=== PATIENT | female | born 1970 | race Caucasian/White ===

== ENCOUNTER 2023-05-21 10:29 | Outpatient (REF) | payer OTHER, SELFPAY ==
[2023-05-21 11:46] LABS: MANUAL DIFF FLAG NO
[2023-05-21 12:26] LABS: Basophils Absolute Auto 0.1 X10*3/uL (0.0-0.2); Basophils Percent Auto 0.6 % (0-2); Eosinophils Absolute Auto 0.2 X10*3/uL (0.0-0.4); Eosinophils Percent Auto 1.7 % (0-4); Hematocrit 47.7 % (37.0-47.0); Hemoglobin 15.4 g/dl (12.0-16.0); Lymphocytes Absolute Auto 1.8 X10*3/uL (1.2-4.9); Lymphocytes Percent Auto 18.2 % (20-40); Mean Corpuscular HGB Conc 32.3 g/dl (31.0-35.0); Mean Corpuscular Volume 80.6 fL (80.0-98.0); Mean Platelet Volume 9.7 fL (9.4-12.3); Monocytes Absolute Auto 0.3 X10*3/uL (0.1-1.2); Monocytes Percent Auto 2.8 % (2-11); Neutrophils Absolute Auto 7.5 x10*3/uL (2.0-8.3); Neutrophils Percent Auto 75.7 % (45-73); Platelet Count 233 X10*3/uL (160-400); Red Blood Count 5.92 X10*6/uL (4.20-5.50); White Blood Count 9.9 X10*3/uL (4.8-10.8)
[2023-05-21 12:42] LABS: Alanine Aminotransferase 19 U/L (0-31); Albumin Level 4.2 g/dL (3.5-5.0); Alkaline Phosphatase 82 U/L (39-117); Anion Gap 13 (12-20); Aspartate Amino Transferase 15 U/L (5-31); Bilirubin Total 0.4 mg/dL (0.0-1.0); Blood Urea Nitrogen 11 mg/dL (9-16); Calcium 9.4 mg/dL (8.4-10.2); Carbon Dioxide 30 mmol/L (22-29); Chloride 105 mmol/L (96-108); Estimated Glomerular Filt Rate > 60; Glucose Random 112 mg/dL (60-115); Potassium 4.8 mmol/L (3.3-5.1); Sodium 143 mmol/L (135-145); Total Protein 7.4 g/dL (6.5-8.0)
== END 2023-05-21 10:30 | disposition home or self-care (01) ==
LOC: HO.LAB 10:29
PROVIDERS: Nurse Practitioner; PCP Internal Medicine; Visit Provider Physician Assistant
DX: Z01.818 Encounter for other preprocedural examination (principal); D12.6 Benign neoplasm of colon, unspecified
CPT/HCPCS: 36415; 80053; 85025

== ENCOUNTER 2023-08-26 11:17 | Day surgery (SDC) | payer OTHER, SELFPAY ==
[2023-08-26 11:56] VITALS: BMI 36.7
--- NOTE | 2023-08-26 12:02 | P.CONAN_ITS ---
[facility] Active Problems Active Problems: All Active Problems Pre-op examination (Acute) Tubular adenoma of colon (Acute) Insomnia (Acute) Depression with anxiety (Acute) Migraines (Acute) Cervical spondylosis (Acute) Lumbar spondylosis (Acute) Sacroiliac dysfunction (Acute) Allergic rhinitis (Acute) Nonalcoholic fatty liver (Acute) Primary fibromyalgia syndrome (Acute) Fibromyositis (Acute) Chronic pain syndrome (Acute) Chronic kidney disease, stage 1 (Acute) High cholesterol (Acute) Diabetes (Acute) Smoker (Acute) Obesity (BMI 30.0-34.9) (Acute) Past Medical History Medical History (Updated 08/25/23 @ 13:29 by Veronika Burk RN) Diabetes Elevated cholesterol Family History Family history of problems with anesthesia: No Surgical History Surgical History History of tubal ligation History of partial hysterectomy H/O cystoscopy H/O colonoscopy History of Problems with Anesthesia: No Social History Social History (Updated 05/21/23 @ 10:36 by Amanda Mcpherson) Household Members: Family Alcohol intake: current Alcohol intake frequency: does not drink Patient Tobacco Use Status: Current everyday Tobacco user Tobacco use type: Cigarette Cigarette Packs Per Day: 1 Cigarettes Per Day: 20.0 Second Hand Smoke Exposure: No Use of substances other than those prescribed or required for medical reasons: Yes Substance Use Type: Marijuana Substance Use Frequency: Occasionally Are you DNR?: No Advance Directives: No Advance Directives Information Provided: Yes Advance Directives on File: No Meds Allergies Allergy/AdvReac Type Severity Reaction Status Date / Time morphine Allergy Intermediate Itching Verified 05/21/23 10:32 azithromycin Allergy Unknown Unknown Verified 05/21/23 10:32 erythromycin base AdvReac Intermediate Vomiting Verified 05/21/23 10:32 metformin AdvReac Intermediate Diarrhea Verified 05/21/23 10:32 semaglutide [From Ozempic] AdvReac Intermediate Vomiting Verified 05/21/23 10:32 tirzepatide [From Mounjaro] AdvReac Intermediate VOMITING Verified 05/21/23 10:32 DIARRHEA Home Medications ?Medication ?Instructions ?Recorded ?Confirmed ?Last Taken ?Type albuterol sulfate 90 mcg/actuation 90 mcg inhalation NEEDED 05/21/23 08/26/23 Unknown History aerosol inhaler atorvastatin 20 mg tablet 20 mg PO DAILY 05/21/23 08/26/23 Unknown History dapagliflozin propanediol 10 mg 10 mg PO DAILY 05/21/23 08/26/23 Unknown History tablet (Farxiga) estradiol 1 mg tablet 1 mg PO DAILY 05/21/23 08/26/23 Unknown History fexofenadine 180 mg tablet 180 mg PO DAILY 05/21/23 08/26/23 Unknown History gabapentin 300 mg capsule 300 mg PO DAILY 05/21/23 08/26/23 Unknown History ibuprofen 800 mg tablet 800 mg PO TID 05/21/23 08/26/23 Unknown History insulin degludec 200 unit/mL (3 unit subcut 05/21/23 Unknown History mL) subcutaneous pen (Tresiba FlexTouch U-200 insulin) lisinopril 10 mg tablet 10 mg PO DAILY 05/21/23 08/26/23 Unknown History omeprazole 20 mg capsule,delayed 20 mg PO DAILY 05/21/23 08/26/23 Unknown History release sertraline 100 mg tablet 100 mg PO BID 05/21/23 08/26/23 Unknown History tramadol 50 mg tablet 50 mg PO BID PRN Pain 05/21/23 08/26/23 Unknown History trazodone 50 mg tablet 50 mg PO BEDTIME 05/21/23 08/26/23 Unknown History Exam Height,Weight and Vital Signs: Height 5 ft 1.5 in Weight 89.556 kg Airway Mallampati Class: II TM Dist: >3cm Neck ROM: Full Heart: rrr Lungs: occ wheeze Assessment and Plan Assessment Anesthesia Assessment: Anesthesia Plan Discussed and Chart Reviewed Final Anesthetic Review Family History of Problems with Anesthesia: No History of Problems with Anesthesia: No NPO: Yes ASA Class: II Final Preanesthetic Review: No Changes in Pt Med Stat and Meds/Allgs Chart Reviewed Patient Risk: Low Procedure Risk: Low Anesthetic Plan Anesthetic Plan: MAC: Disposition: Standard PACU
[2023-08-26 12:25] LABS: Glucose, Whole Blood 96 mg/dL (60-115)
[2023-08-26 12:31] VITALS: BP 111/59; PULSE 65; RESP 16; TEMP 36.2; O2SAT 95
[2023-08-26] MEDS: Albuterol Sulfate (0.083%) 2.5 MG/3 ML VIAL.NEB INHALE (12:31)
--- NOTE | 2023-08-26 12:36 | P.HPSUR_ITS ---
Pre-Procedural Eval Section A - 24 Hr Update-Section A only Date of Service: 08/26/23 Section B - Complete if H&P > 30 days Chief Complaint: Benign neoplasm of colon, unspecified Relevant Family History (Specify if Yes): No Relevant Social History: Tobacco Use Present Medications: see Short Stay Collaborative assessment Medical History: Significant History (depression, migraines, spondylosis, Dm, hi chol, HTN) History of Previous Operations: Relevant previous surgery/procedure and date(s) Allergies: Allergies Allergy/AdvReac Type Severity Reaction Status Date / Time morphine Allergy Intermediate Itching Verified 05/21/23 10:32 azithromycin Allergy Unknown Unknown Verified 05/21/23 10:32 erythromycin base AdvReac Intermediate Vomiting Verified 05/21/23 10:32 metformin AdvReac Intermediate Diarrhea Verified 05/21/23 10:32 semaglutide [From Ozempic] AdvReac Intermediate Vomiting Verified 05/21/23 10:32 tirzepatide [From Mounjaro] AdvReac Intermediate VOMITING Verified 05/21/23 10:32 DIARRHEA Review of Systems Sugical H&P ROS: Negative: Constitution, Cardiovascular, Respiratory, Neurological, Psychiatric, Hem-Onc, Allergic/Immunologic, Gastrointestinal, Genitourinary, Musculoskeletal, Integumentary, Endocrine and Eyes/Ears/Nose/T hroat Exam Surgical H&P Exam: Normal: HEENT, Normal: Heart, Normal: Lungs, Normal: Extremities, Normal: Abdomen, Normal: Skin and Normal: Neurological Plan Diagnosis/Plan: Unchanged I have reviewed the history and physical and performed a pertinent physical examination on my patient. No changes have occurred unless specified. Time Spent With Patient Time: Total time managing care of this patient today ____ minutes.
[2023-08-26] MEDS: Lactated Ringers 1,000 ML 80 ML IVCONT (12:52)
--- NOTE | 2023-08-26 13:48 | HO.OPN-COLON ---
Colonoscopy Operative Note Operative Note Date of Service: 08/26/23 Narrative: Operative Information Procedure Description: Colonoscopy Indication: colon screening Anesthesia: MAC COLONOSCOPY Instrument: Olympus variable stiffness pediatric scope 190L Colonoscopy Monitoring: Vital signs and clinical assessment, continuous EKG monitoring, Pulse oximetry, Carbon Dioxide monitoring and blood pressure monitoring were done throughout the procedure. Colon withdrawal time was 8 minutes. Procedure: The patient was placed in the left lateral decubitis position and pre-procedure medications were administered. After a digital rectal examination of the ano-rectum, the video colonoscope was inserted into the rectum and advanced through the colon to the cecum/TI. The colonoscope was slowly withdrawn in a retrograde panoramic fashion and the colon mucosa was carefully examined including a retroflexed view of the rectum. Findings and interventions are described below. Procedure Difficulty: easy Findings: Terminal Ileum-normal Cecum:normal right sided retroflexion- normal Ascending Colon: normal Transverse Colon -normal Descending Colon:normal Sigmoid Colon: normal Rectum: Retroflexion with small internal hemorrhoids seen, grade I Anorectum - normal Intervention: none Colon preparation: [place] Bowel Preparation Scale Right colon; 1-2 Transverse colon: 2 Left colon; 2 (0 = Unprepared colon segment with mucosa not seen due to solid stool that cannot be cleared. 1 = Portion of mucosa of the colon segment seen, but other areas of the colon segment not well seen due to staining, residual stool and/or opaque liquid. 2 = Minor amount of residual staining, small fragments of stool and/or opaque liquid, but mucosa of colon segment seen well. 3 = Entire mucosa of colon segment seen well with no residual staining, small fragments of stool or opaque liquid) Impression and Post Procedure Diagnosis: internal hemorrhoids Plan: High fiber diet leaflet Avoid straining at stool, epsom salts and sitz bath, anusol supps or cream Repeat Colonoscopy in 5 years due to areas of fair prep on right or earlier if clinically indicated Above findings were reviewed with the patient and relevant handouts were provided if indicated.
[2023-08-26 14:22] VITALS: BP 99/52; PULSE 73; RESP 16; TEMP 36.2; O2SAT 94
[2023-08-26 14:35] VITALS: BP 113/66; PULSE 66; RESP 16; O2SAT 96
[2023-08-26 14:46] LABS: Glucose, Whole Blood 96 mg/dL (60-115)
[2023-08-26 14:47] VITALS: BP 120/65; PULSE 77; RESP 16; TEMP 36.1; O2SAT 97
== END 2023-08-26 15:31 | disposition home or self-care (01) ==
PROVIDERS: PCP Internal Medicine; Visit Provider Internal Medicine Gastroenterology
PROC: 0DJD8ZZ Inspection of Lower Intestinal Tract, Via Natural or Artificial Opening Endoscopic (ICD-10-PCS; CPT 45378; principal; 2023-08-26 14:10)
DX: Z12.11 Encounter for screening for malignant neoplasm of colon (principal); K64.0 First degree hemorrhoids; Z86.010 Personal history of colon polyps; E11.9 Type 2 diabetes mellitus without complications; E78.5 Hyperlipidemia, unspecified; I10 Essential (primary) hypertension; F17.200 Nicotine dependence, unspecified, uncomplicated
CPT/HCPCS: 45378; 82947; J2704

== ENCOUNTER → 2023-08-26 11:17 | Outpatient (BNV) | payer OTHER, SELFPAY | PROVIDERS: PCP Internal Medicine; Visit Provider Internal Medicine Gastroenterology | DX: Z12.11 Encounter for screening for malignant neoplasm of colon (principal); K64.0 First degree hemorrhoids | CPT/HCPCS: 45378 ==